=== PATIENT | male | born 1930 | race Caucasian/White ===

== ENCOUNTER 2017-09-13 09:17 | Inpatient (IN) | payer MEDICARE, OTHER ==
[~2017-09-13] VITALS: Ht 193 cm; Wt 93.4 kg
[~2017-09-13 09:17] MED LIST: ALEVE220 MG; FOLIC ACID 40400 MC1 PO; RIVASTIGMINE1.5 MG PO; ZOCOR20 MG
[2017-09-13 09:23] VITALS: BP 148/78
[2017-09-13] MEDS ORDERED: NAMENDA 10 MG T10 MG PO (09:26)
[2017-09-13 09:54] LABS: ABSOLUTE BASOPHILS 0.1 thou/uL (0.0-0.2); ABSOLUTE EOSINOPHILS 0.3 thou/uL (0.0-0.7); ABSOLUTE LYMPHOCYTES 2.3 thou/uL (0.8-5.3); ABSOLUTE MONOCYTES 0.4 thou/uL (0.0-1.2); ABSOLUTE NEUTROPHILS 5.7 thou/uL (1.6-8.1); BASOPHILS 0.9 %; EOSINOPHILS 3.2 %; HEMATOCRIT 49.9 % (42.0-52.0); HEMOGLOBIN 16.9 gm/dL (14.0-18.0); LYMPHOCYTES 26.1 %; MCH 32.2 pg (26.0-34.0); MCHC 33.9 g/dL (28.0-37.0); MCV 95.1 fL (80.0-100.0); MPV 8.5 fl. (7.2-11.1); NUCLEATED RBCS 0 /100WBC; PLATELET COUNT* 244 thou/uL (150-400); POLYS 64.8 %; RBC 5.24 mil/uL (4.50-6.00); RDW-CV 13.3 % (10.5-14.5); WBC 8.8 thou/uL (4.0-11.0)
[2017-09-13 10:05] LABS: CALCIUM 8.6 mg/dL (8.5-10.1); CREATININE 0.9 mg/dL (0.6-1.3); POTASSIUM 3.6 mmol/L (3.5-5.1)
[2017-09-13 10:10] LABS: ALBUMIN 3.4 g/dL (3.4-5.0); TOTAL BILIRUBIN 0.8 mg/dL (<0.1-1.0); TOTAL PROTEIN 6.2 g/dL (6.4-8.2)
[2017-09-13 11:20] VITALS: BP 133/62
--- NOTE | 2017-09-13 11:41 | NUR ---
TAKEN TO PACU AT THIS TIME.
--- NOTE | 2017-09-13 16:04 | EKG ---
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 Specialist: international travel consultant : 1930 Requested By: Bridget Esteban Order Number: [id number] MD: William Montana Measurements Intervals [place] Rate: 55 P: 67 NE: 184 QRS: -56 QRSD: 123 T: 63 QT: 428 QTc: 410 Interpretive Statements Sinus rhythm Left bundle branch block Compared to ECG 07/20/2007 09:12:11 Sinus bradycardia no longer present First degree AV block no longer present Electronically Signed On 09-13-2017 16:04:40 METAL FABRICATING INSPECTOR by William Montana [email or web address] <ELECTRONICALLY SIGNED> By: William Montana MD, FAC 09/13/17 1604 0947 0947 William Montana MD, [facility] /EPI
[2017-09-13] MEDS ORDERED: FOLIC ACID1 MG PO (17:40)
[2017-09-13] MEDS ORDERED: ALEVE220 MG PO (17:40)
[2017-09-13] MEDS ORDERED: ASPIR 8181 MG PO (17:40)
[2017-09-13 20:00] VITALS: BP 148/74
[2017-09-13 23:30] VITALS: BP 132/65
[2017-09-14 04:08] VITALS: BP 113/70
[2017-09-14 04:20] LABS: HEMATOCRIT 43.4 % (42.0-52.0); MCH 31.2 pg (26.0-34.0); MCHC 33.2 g/dL (28.0-37.0); MCV 94.1 fL (80.0-100.0); MPV 8.5 fl. (7.2-11.1); NUCLEATED RBCS 0 /100WBC; PLATELET COUNT* 286 thou/uL (150-400); RBC 4.61 mil/uL (4.50-6.00); WBC 16.9 thou/uL (4.0-11.0)
[2017-09-14 04:33] LABS: CALCIUM 8.3 mg/dL (8.5-10.1); CREATININE 1.1 mg/dL (0.6-1.3); POTASSIUM 4.5 mmol/L (3.5-5.1)
[2017-09-14 04:44] LABS: HEMOGLOBIN 14.4 gm/dL (14.0-18.0)
--- NOTE | 2017-09-14 06:26 | NUR ---
ASSUMED CARE OF PT AT 1900 PT ALERT AND CONFUSED AT BASELINE VS AND ASSESSMENT STABLE.L HIP DRSG CDI POSITIVE CMSCHECKS LLE PT UNABLE TO VOID BS 400 MLS OBTAINED ORDER FOR S/C UNABLE TO CATH WITH A 14FR REGULAR CATHETER ATEMPTED WITH A 14 F COUDE UNSUCESSFULLY TRIED AGAIN WITH 12FR AND WAS ABLE TO PASS THE CATHETER S/C FOR 350 TONJA URINEPT TOLERATED FAIR. PT PICKED AT O2 SAT MONITOR AND REMOVED SENSOR 3 TIMES. PT GOT OOB ON OWN BED ALARM WENT OFF PT HAD DICONECTED THE CAP OFF SL AND BLED ALL OVER HIS BED. CLEANED PT UP AND CHANGED SHEETS PT THEN SLEPT THROUGH THE REST OF THE NIGHT. WILL CONTINUE PLAN OF CARE.
[2017-09-14 06:53] LABS: ABSOLUTE LYMPHOCYTES 0.3 thou/uL (0.8-5.3); ABSOLUTE MONOCYTES 1.2 thou/uL (0.0-1.2); ABSOLUTE NEUTROPHILS 15.4 thou/uL (1.6-8.1)
[2017-09-14 06:56] LABS: PLATELET ESTIMATE ADEQUATE
[2017-09-14 08:03] VITALS: BP 143/74
--- NOTE | 2017-09-14 09:25 | NUR ---
PATIENT STRAIGHT CATHED AT 0030 LAST SHIFT. HAS BEEN UNABLE TO VOID SPONTANEOUSLY SINCE THEN. STOOD PATIENT AND ATTEMPTED TO VOID IN URINAL WITHOUT RESULTS. BLADDER SCANNED. 298 ML IN BLADDER. PHYSICIAN PAGED. NURSING WILL CONTINUE TO MONITOR.
--- NOTE | 2017-09-14 13:47 | NUR ---
PT.HAS DX OF DEMENTIA. DOES NOT FOLLOW DIRECTIONS. UNABLE TO ANSWER QUESTIOS APPROPRIATELY. CALL TO SON/DPOA GERMAINE [phone]. LEFT MESSAGE FOR HIM TO CALL CM BACK.
--- NOTE | 2017-09-14 15:00 | NUR ---
GERMAINE,PT.S SON CALLED CM BACK. GERMAINE SAID PT.LIVES WITH IN A HOUSE. HE DOES NOT USE ANY DME. GERMAINE SAID HIS MOM HAS MACULAR DEGENERATION AND A BAD BACK SHE IS ALERT AND ORIENTED BUT CAN'T LEAVE THE HOUSE MUCH. FATHER WAS OK PHYSICALLY PRIOR TO HIS FALL BUT HAS DEMENTIA. FAMILY IS SUPPORTIVE. DISCUSSED DISCHARGE PLANS. HE IS AWARE HE WILL NEED SNF. HE SAID HE COULD GO TO [facility] OR [facility]. ABSOLUTELY NO TO [facility]. CM WILL MAKE REFERRALS TO BOTH FACILITIES.
--- NOTE | 2017-09-14 15:14 | NUR ---
I have reviewed the documentation by MYCHAL ANDRE from 09/14/17 to 09/14/17 and I concur with it. JANIE BARNES
[2017-09-14 15:41] VITALS: BP 141/80
--- NOTE | 2017-09-14 15:58 | NUR ---
I have reviewed the documentation by MYCHAL ANDRE from 09/14/17 to 09/14/17 and I concur with it. JANIE BARNES
--- NOTE | 2017-09-14 17:06 | NUR ---
ASSUMED CARE OF PATIENT AFTER REPORT THIS MORNING. PATIENT AWAKE, ALERT, AND ORIENTED TO SELF AND PLACE. PHYSICAL ASSESSMENT COMPLETED AND CHARTED. COMPLAINED OF PAIN THIS SHIFT BUT HAS DECLINED PAIN MEDICATION. GIVEN SCHEDULED MEDICATIONS, SEE EMAR FOR DOCUMENTATION. VITAL SIGNS STABLE. OXYGEN SATURATION WITHIN NORMAL LIMITS ON ROOM AIR. PATIENT TRANSFERS AND AMBULATES WITH ASSISTANCE FROM STAFF. DOES NOT USE CALL LIGHT APPROPRIATELY, ACTS IMPULSIVELY. REQUIRES FREQUENT OBSERVATION. FAMILY HAS BEEN IN AND OUT OF ROOM TODAY. PATIENT PULLED OUT IV THIS AFTERNOON. CONFUSED. PAGED PHYSICIAN TO SEE IF WE COULD LEAVE IV OUT. WAITING TO HEAR FROM PHYSICIAN. PATIENT HAS WALKED TO THE BATHROOM SEVERAL TIMES TODAY WITH GAIT BELT AND WALKER. DENIES NEEDS AT THIS TIME. CALL LIGHT WITHIN REACH. NURSING WILL CONTINUE TO MONITOR.
[2017-09-14 20:00] VITALS: BP 128/78
[2017-09-15 00:02] VITALS: BP 143/68
[2017-09-15 04:00] VITALS: BP 124/73
[2017-09-15 05:03] LABS: ABSOLUTE LYMPHOCYTES 1.4 thou/uL (0.8-5.3); ABSOLUTE MONOCYTES 1.6 thou/uL (0.0-1.2); ABSOLUTE NEUTROPHILS 10.9 thou/uL (1.6-8.1); BASOPHILS 0.2 %; HEMATOCRIT 38.9 % (42.0-52.0); LYMPHOCYTES 10.1 %; MCH 31.4 pg (26.0-34.0); MCHC 33.5 g/dL (28.0-37.0); MCV 93.7 fL (80.0-100.0); MONOCYTES 11.4 %; MPV 8.9 fl. (7.2-11.1); NUCLEATED RBCS 0 /100WBC; PLATELET COUNT* 243 thou/uL (150-400); POLYS 78.3 %; RBC 4.15 mil/uL (4.50-6.00); RDW-CV 13.3 % (10.5-14.5); WBC 13.9 thou/uL (4.0-11.0)
[2017-09-15 05:13] LABS: ALBUMIN 2.8 g/dL (3.4-5.0); CALCIUM 8.4 mg/dL (8.5-10.1); CREATININE 1.1 mg/dL (0.6-1.3); TOTAL BILIRUBIN 0.7 mg/dL (<0.1-1.0); TOTAL PROTEIN 5.6 g/dL (6.4-8.2)
[2017-09-15 08:14] VITALS: BP 134/74
--- NOTE | 2017-09-15 09:34 | NUR ---
ASSUMED RESPONSIBILITY OF PT THIS AM PT IS ALERT AND ORIENTED X1 PT WAS STUTTERING THIS AM, HAVING TROUBLE FINDING WORDS, INVOLUNTARY JERKING, PAIN IF BARELY TOUCHED, COULD NOT LIFT EXT. OR KEEP THEM UP, DEVELOPMENT ASSOCIATE WEAK, WOULD NOT SMILE BECAUSE COULD NOT FOLLOW COMMANDS CT OF HEAD TO BE DONE AND IV FLUIDS TO BE STARTED NEED TO PUT NEW IV IN PT PULLS THEM OUT PT WOULD NOT GET UP WITH THERAPY PT DID NOT EAT THIS AM EITHER VERY DIFFICULT TO SWALLOW MEDS JUST HOLDING IT IN MOUTH NO COUGHING OR SIGNS OF ASPIRATION TYLENOL STARTED SCHEDULED
--- NOTE | 2017-09-15 11:31 | NUR ---
[facility]INO [facility] CALLED AND SAID THEY CAN ACCEPT PT.TOMORROW IF READY FOR DISCHARGE. WILL INFORM FAMILY.
--- NOTE | 2017-09-15 13:19 | S ---
[address] [address] SURGICAL PATH RPT PROCEDURE Name: EDISON MELO V Room: [address] IN M.R.#: [id number] Admission: 09/13/17 Date of : 34 Discharge: Report #: [id number] Path Case #: [id number] PATHOLOGY REPORT COLLECTION DATE: 09/13/2017 RECEIVED DATE: 09/13/2017 SUBMITTING PHYS: Edison Lorenzo D.O. OTHER PHYS: Dr. Angel Grossman DO SPECIMEN(S) RECEIVED: A.R hip bone and tissue * * * * * * * * * * * * FINAL DIAGNOSIS: Right hip bone and tissue: - Benign dense fibrous connective tissue and benign femoral head with osteoporosis and evidence of fracture including fresh stromal hemorrhage. (ALESSANDRA:[facility]; 09/15/2017) PATHOLOGIST: Xavier Borden M.D. REPORT ELECTRONICALLY SIGNED BY: Xavier Borden M.D. DATE/TIME: 09/15/2017 13:18 * * * * * * * * * * * * GROSS PATHOLOGY: Received in formalin labeled "Edison Melo, right hip bone and tissue," is a femoral head measuring 5.1 x 5.1 x 4.8 cm in greatest dimensions, admixed with soft tissue. The articular surface is smooth to granular and pale moffett to dark brown in appearance, with no gross evidence of eburnation. Sectioning reveals a pale pink-yellow to hemorrhagic marrow space, with the distal most aspect hemorrhagic in appearance, consistent with a fracture site. Machine Compositor tissue from the fracture site is submitted in cassettes A1 and A2, following decalcification. (DAC; 09/14/2017) CLINICAL HISTORY: Right hip fracture INITIAL CPT CODE(S): A; 98343, 58473 Professional services performed by [facility] at [facility], [address] [place] [address]., [place] [address]. [facility] by [facility] at [address] [place] [address], [address], [place] [address] SURGICAL PATH RPT PROCEDURE Name: EDISON MELO V Room: [address] IN M.R.#: [id number] Admission: 09/13/17 Date of : 34 Discharge: Report #: [id number] Path Case #: [id number] [place] [address]. [facility] [address] [place] [address] PHONE: [phone] DIRECTOR: Warren Peres M.D. * * * END OF REPORT * * *
[2017-09-15 16:17] VITALS: BP 110/61
[2017-09-15 20:00] VITALS: BP 115/58
[2017-09-16] VITALS (8 sets, daily range): BP systolic 105–127; BP diastolic 55–67
[2017-09-16 01:30] LABS: URINE BILIRUBIN NEGATIVE (Negative); URINE BLOOD 3+ (Negative); URINE CLARITY CLEAR; URINE COLOR DARK YELLOW; URINE GLUCOSE-RANDOM NEGATIVE (Negative); URINE KETONES TRACE (Negative); URINE LEUKOCYTES-REFLEX TRACE (Negative); URINE NITRITE-REFLEX NEGATIVE (Negative); URINE PROTEIN 1+ (Negative); URINE SPECIFIC GRAVITY 1.025 (1.005-1.030); URINE UROBILINOGEN 0.2 E.U./dl (0.2-1.0)
[2017-09-16 01:36] LABS: SQUAMOUS 0-3 Few /LPF (0-3); URINE RBC >20 Many /HPF (0-2); URINE WBC-REFLEX 6-15 Few /HPF (0-5)
[2017-09-16 01:37] LABS: CASTS None Seen /LPF (None Seen); CRYSTALS None Seen /LPF (None Seen); MUCUS 0-3 Light strn/LPF (None Seen)
[2017-09-16 04:46] LABS: ABSOLUTE LYMPHOCYTES 1.5 thou/uL (0.8-5.3); ABSOLUTE MONOCYTES 0.8 thou/uL (0.0-1.2); ABSOLUTE NEUTROPHILS 7.7 thou/uL (1.6-8.1); BASOPHILS 0.5 %; EOSINOPHILS 0.5 %; HEMATOCRIT 36.8 % (42.0-52.0); HEMOGLOBIN 12.2 gm/dL (14.0-18.0); MCH 31.5 pg (26.0-34.0); MCHC 33.2 g/dL (28.0-37.0); MONOCYTES 8.3 %; MPV 8.5 fl. (7.2-11.1); NUCLEATED RBCS 0 /100WBC; PLATELET COUNT* 226 thou/uL (150-400); POLYS 75.7 %; RBC 3.88 mil/uL (4.50-6.00); RDW-CV 13.4 % (10.5-14.5); WBC 10.1 thou/uL (4.0-11.0)
[2017-09-16 05:54] LABS: PREALBUMIN 12.7 mg/dL (18.0-35.7)
[2017-09-16 06:37] LABS: ALBUMIN 2.5 g/dL (3.4-5.0); CALCIUM 8.1 mg/dL (8.5-10.1); POTASSIUM 3.6 mmol/L (3.5-5.1); TOTAL BILIRUBIN 0.9 mg/dL (<0.1-1.0); TOTAL PROTEIN 5.5 g/dL (6.4-8.2)
--- NOTE | 2017-09-16 06:57 | NUR ---
Oriented x 1-2 but forgetful. At start of shift seemed more alert and oriented now he's very impulsive. Rt anterior hip mepilex dressing is dry and intact. He trys to get out of bed without assistance. He seemed to be controlled with extra strength tylenol for pain. He has been awake all of this shift. He was repositiones every 2 hours.
--- NOTE | 2017-09-16 13:53 | NUR ---
HERE AND WILL DISCHARGE PT.TO SNF. NOTIFIED ERIK/SEFERINO OF [facility]. SHE WILL SET UP WC [facility] TRANSPORTATION FOR 4PM .FAXED DISCHARGE ORDERS TO HER AT [phone]. NOTIFIED PT.AND SON OF DISCHARGE TIME. CHART COPIED TO GO WITH PT. NURSING TO CALL REPORT.
[2017-09-16] MEDS ORDERED: COLACE100 MG PO (15:45)
[2017-09-16] MEDS ORDERED: ELIQUIS2.5 MG PO (15:46)
[2017-09-16] MEDS ORDERED: METAMUCIL1 EAC1 PO (15:49)
[2017-09-16] MEDS ORDERED: HYDROCODONE-AP1 EAC6 PO (15:49)
[2017-09-16] MEDS ORDERED: PROTONIX40 M1 PO (15:50)
[2017-09-16] MEDS ORDERED: TYLENOL PM EX-1 EACH PO (15:51)
--- NOTE | 2017-09-16 18:09 | NUR ---
ALERT AND ORIENTED X1-2. UP WITH ASSIST X1 WITH WALKER AND GAIT BELT. IV DC'D. PAIN BEING MANAGED WITH SCHEDULED PO PAIN MEDICAION. DENIES NAUSEA. ATTENDED THERAPY THIS AM. ALL PERSONAL ITEMS LEFT WITH PATIENT. DISCHARGE INSTRUCTIONS, PRESCRIPTIONS, AND NEW MEDICATION INFORMATION SENT WITH PATIENT TO FACILITY. VSS ON ROOM AIR. HOURLY ROUNDS HAVE BEEN MAINTAINED THROUGHOUT SHIFT. LEFT WITH TRANSPORTER VIA WHEELCHAIR VAN. REPORT GIVEN TO NURSE AT [facility].
--- NOTE | 2017-12-11 09:58 | OP ---
[address] [address] OPERATIVE REPORT Name: EDISON RENEE V Room: [address] IN M.R.#: [id number] Admission: 09/13/17 Attend Phys: Angel Rausch MD Discharge: 09/16/17 Date of : 32 Report #: [id number] THIS REPORT FOR: //name// CC: Angel Grossman PREOPERATIVE DIAGNOSIS: Right femoral neck fracture, closed, displaced, traumatic. POSTOPERATIVE DIAGNOSIS: Right femoral neck fracture, closed, displaced, traumatic. PROCEDURE: Right blanco hip arthroplasty through anterior approach. SURGEON: Edison Lorenzo DO WELLNESS EDUCATOR: Jun El DO ANESTHESIA: General. ANTIBIOTICS: Weight appropriate dosing Ancef IV preoperatively. BLOOD LOSS: 150 mL. COMPLICATIONS: None. SPECIMENS: Femoral head. DRAINS: None. CONDITION: The patient is stable to PACU. IMPLANTS: Biomet Taperloc size 16 standard offset stem bipolar size 52 with standard neck adaptor. INDICATIONS FOR PROCEDURE: The patient admitted to [facility] and sustained a femoral neck fracture that was displaced. I talked with him and family members who act his power of managing attorney what the recommendations would be. We discussed blanco hip arthroplasty and the risks and complications associated with that. Please see consult note for full list of what was discussed. We obtained verbal and written consent from power of managing attorney. DESCRIPTION OF PROCEDURE: I confirmed the right extremity was correct and marked the extremity in the presence of the operative team, all members agreed. He was taken to the operative suite where a briefing was performed indicating correct patient, procedure, site, antibiotics and that all implants needed were present and sterile. All team members agreed. [place] [address] OPERATIVE REPORT Name: EDISON RENEE V Room: [address] IN ..#: [id number] Admission: 09/13/17 Attend Phys: Angel Rausch MD Discharge: 09/16/17 Date of : 32 Report #: [id number] He was transferred over to the [place] fracture table in a supine position, well padded and well secured. We sterilely prepped and draped the right lower extremity in standard fashion. An official timeout performed indicating correct patient, procedure, site, antibiotics and that all implants needed were present and sterile. All team members agreed. Incision made with 10 blade scalpel. Soft tissue dissection maintaining hemostasis down to fascial layer. A second scalpel used to incise through fascia and then we bluntly dissected between the interval of the tensor fascia radha and sartorius. We visualized our lateral femoral circumflex vessels, cauterized these with the Aquamantys and electrocautery. At that point in time, we continued dissection down and got retractors over the superior and inferior aspects of the femoral neck. Blunt dissection releasing the indirect head off capsule and then a retractor placed over the anterior brim of the acetabulum. The anterior capsule was cauterized with Aquamantys and electrocautery used to perform anterior capsulectomy. Retractors were placed back inside the capsule. We cleaned up our neck cut 1 fingerbreadth above the lesser trochanter, removed the fractured femoral neck and head. This was sent for specimen and specimen time out was performed and confirmed. We repositioned retractors. We incised the head on the back table to be 52. We placed the 52 trial bipolar shell. This had good suction and good fit within the acetabulum. This will be used for later trialing. We then used a [place] fracture table to position the extremity and only performed what releases were necessary to gain access to the femur and began broaching with a size [address] up to a size 16, size 16 had good fit, fill and good rotation for version based on the back wall in the calcar. For judgment, we took an x-ray of the stem which showed good fit and fill. Therefore, the final size 16 was thrown after confirming this to be appropriate based on implant timeout, so the final size 15 Taperloc standard offset was implanted into the femur after thoroughly irrigating with normal saline and removing the trial component. The final implant sat down the exact same location of the final. We trialed a standard neck adaptor with the 52 head, reduced the hip, brought in, x-ray. We had great confirmation of our leg lengths by looking at the lesser trochanter was on a true AP pelvis. Good fit of the 52 cup within the acetabulum. External rotation to 110 degrees did not show any instability. We took the boot out of the [place] table, took throughout range of motion. It was stable throughout all arcs with no dislocation. At any point, we reengaged the boot to the table, changed gloves, irrigated within the surgical site, dislocated the hip, repositioned the femur for access, removed trial components, final size 52 with a 28 inside diameter head was thrown on to back table after confirming this on implants time outs with a standard length neck adapter. This was all assembled on the backtable and gated on to the final stem and the Rasheed taper engaged, confirmed by not being able to remove from the head once we malleted in position. We then reduced the hip, obtained final C-arm images, excellent position of all implants. No fracture, no instability. Took the hip again through range of motion out of the table. It was stable throughout all arcs including over 110 degrees of external rotation. Changed gloves, thoroughly irrigated with 1000 mL of normal saline. Closure was with [address] [address] OPERATIVE REPORT Name: EDISON RENEE V Room: [address] IN ..#: [id number] Admission: 09/13/17 Attend Phys: Angel Rausch MD Discharge: 09/16/17 Date of : 34 Report #: [id number] and Stratafix with the fascial layer with complete closure proximally and distally. Subcutaneous layer was irrigated with 500 mL normal saline and closed with 2-0 Monocryl buried deep in a running subcuticular stitch with V-Loc and Dermabond glue over the skin. We performed debriefing where we confirmed the procedure, blood loss and that all counts were correct and final. Sterile dressing applied. The patient was actually extubated and transferred off the operating table and taken to PACU Stable. POSTOPERATIVE COURSE AND EVALUATION: I spoke with his children. They included the power of managing attorney, informed them surgery went well and addressed any questions or concerns they had. They thanked me for our time and efforts. The patient was resting in the PACU. His neurovascular exam was intact and unchanged compared to preoperative exams. Pain controlled in stable condition. PACU films showed excellent position of components, no dislocation, no fracture seen. <ELECTRONICALLY SIGNED> By: Edison Lorenzo DO 12/11/17 0958 1135 1322Jamarilyn Lorenzo DO /nt
== END 2017-09-16 16:00 | DRG 469 ==
LOC: M.ERS 09:17 → M.ORTHSURG 10:47 → M.TBA-ER 10:47 → M.ORTHSURG 17:24
PROVIDERS: Orthopaedic Surgery; Personal Emergency Response Attendant; ADMIT Internal Medicine
PROC: 0SRR0JZ Replacement of Right Hip Joint, Femoral Surface with Synthetic Substitute, Open Approach (ICD-10-PCS; principal; 2017-09-13)
DX: S72.001A Fracture of unspecified part of neck of right femur, initial encounter for closed fracture (principal); G93.40 Encephalopathy, unspecified; I25.10 Atherosclerotic heart disease of native coronary artery without angina pectoris; S91.011A Laceration without foreign body, right ankle, initial encounter; W00.0XXA Fall on same level due to ice and snow, initial encounter; Y93.89 Activity, other specified; Y92.89 Other specified places as the place of occurrence of the external cause; Y99.8 Other external cause status; Z79.899 Other long term (current) drug therapy; Z87.891 Personal history of nicotine dependence; Z95.1 Presence of aortocoronary bypass graft

== ENCOUNTER → 2017-11-08 | Outpatient (CLI) | payer MEDICARE, OTHER ==
[~2017-11-08] MED LIST changes: +ALEVE220 MG PO; +ASPIR 8181 MG PO; +COLACE100 MG PO; +ELIQUIS2.5 MG PO; +FOLIC ACID1 MG PO; +HYDROCODONE-AP1 EAC6 PO; +METAMUCIL1 EAC1 PO; +NAMENDA 10 MG T10 MG PO; +PROTONIX40 M1 PO; +TYLENOL PM EX-1 EACH PO
== END ==
LOC: M.RAD 15:29
DX: Z13.820 Encounter for screening for osteoporosis (principal); M85.89 Other specified disorders of bone density and structure, multiple sites

== ENCOUNTER 2018-09-04 12:25 | Inpatient (IN) | payer MEDICARE, OTHER ==
[~2018-09-04] VITALS: Ht 193 cm; Wt 106.6 kg
[~2018-09-04 12:25] MED LIST changes: -ZOCOR20 MG; +ZOCOR20 MG PO
[2018-09-04 12:26] VITALS: BP 144/70
[2018-09-04] MEDS ORDERED: VITAMIN D2000 UNIT PO (12:40)
[2018-09-04] MEDS ORDERED: TYLENOL EXTRA500 MG PO (12:40)
[2018-09-04] MEDS ORDERED: CALCIUM500 MG PO (12:41)
--- NOTE | 2018-09-04 12:43 | NUR ---
STOPPED TAKING ELIQUIS AND SWITCHED TO XERALTO, BUT IT HAS BEEN HELD FOR 7 DAYS FOR A PROCEDURE TO LOOK FOR BLOOD. PATIENT HAD RIGHT HIP SURGERY LAST YEAR.
[2018-09-04 14:43] LABS: URINE BILIRUBIN NEGATIVE (Negative); URINE BLOOD 1+ (Negative); URINE CLARITY CLEAR; URINE COLOR YELLOW; URINE GLUCOSE-RANDOM NEGATIVE (Negative); URINE KETONES TRACE (Negative); URINE LEUKOCYTES-REFLEX TRACE (Negative); URINE NITRITE-REFLEX NEGATIVE (Negative); URINE PROTEIN TRACE (Negative); URINE SPECIFIC GRAVITY 1.025 (1.005-1.030); URINE UROBILINOGEN 0.2 E.U./dl (0.2-1.0)
[2018-09-04 14:50] LABS: BACTERIA-REFLEX 1-9 Few /HPF (None Seen); MUCUS 0-3 Light strn/LPF (None Seen); SQUAMOUS 0-3 Few /LPF (0-3); URINE RBC 0-2 Rare /HPF (0-2); URINE WBC-REFLEX 6-15 Few /HPF (0-5)
[2018-09-04 14:51] LABS: COARSE GRANULAR CASTS 0-3 Few /LPF (None Seen); CRYSTALS None Seen /LPF (None Seen)
[2018-09-04 16:42] VITALS: BP 133/68
[2018-09-04] MEDS ORDERED: XARELTO10 MG PO (16:44)
[2018-09-04 16:51] LABS: ABSOLUTE EOSINOPHILS 0.1 thou/uL (0.0-0.7); ABSOLUTE LYMPHOCYTES 1.7 thou/uL (0.8-5.3); ABSOLUTE MONOCYTES 0.9 thou/uL (0.0-1.2); ABSOLUTE NEUTROPHILS 6.3 thou/uL (1.6-8.1); BASOPHILS 0.5 %; EOSINOPHILS 0.8 %; HEMOGLOBIN 15.2 gm/dL (14.0-18.0); LYMPHOCYTES 18.5 %; MCH 32.4 pg (26.0-34.0); MCHC 33.9 g/dL (28.0-37.0); MCV 95.8 fL (80.0-100.0); MONOCYTES 10.1 %; MPV 8.3 fl. (7.2-11.1); NUCLEATED RBCS 0 /100WBC; PLATELET COUNT* 240 thou/uL (150-400); POLYS 70.1 %; RDW-CV 13.1 % (10.5-14.5)
[2018-09-04 16:55] LABS: POTASSIUM 3.8 mmol/L (3.5-5.1)
[2018-09-04 17:23] VITALS: BP 123/103
--- NOTE | 2018-09-04 17:45 | NUR ---
RECIEVIED REPORT FROM CURRY RN IN ER OF EXPECTED ADMISSION AT 1620- DX: FALL WITH CONTUSION TO RIGHT KNEE- PT ARRIVED TO ROOM 220 VIA CART AT 1700, ASSIST X3 TO BED VIA SLIDE- PT A&O 1-2 WITH NOTED CONFUSION R/T DEMENTIA- CONTINENT VS INCONTINENT OF BOWEL AND BLADDER- BED REST IN PLACE WITH Q 2 HOUR TURNS- VS 97.2 20 123/103 83 97% ON RA- ABD SOFT/ROUND/NON-TENDER, BSN X4 QUADS- UNKNOWN LAST BM- NO IV NOTED AT TIME OF ADMISSION- REGULAR DIET IN PLACE WITH GOOD PO INTAKE NOTED WITH DINNER- SKIN C/D/I, FEW SCANT SCRATCH TATUM NOTED TO BUTTOCKS-DRY SCALEY SKIN NOTED TO AYALA FEET- PT DENIES ANY C/O PAIN/DISCOMFORT AT THIS TIME- CALL LIGHT AND PERSONAL BELONGINGS WITH IN REACH- BED ALARM IN PLACE AND WORKING FOR PT SAFETY- FREQUENT CHECKS IN PLACE R/T SAFETY/NEEDS- ALL NEEDS MET AT THIS TIME-WCTM
[2018-09-04 19:05] VITALS: BP 136/67
[2018-09-05] VITALS: BP 150/65
--- NOTE | 2018-09-05 01:32 | NUR ---
PT IS ALERT & ORIENTED X SELF AND IS VERY IMPULSINE. REFER TO COMPUTER CHARTING FOR DETAIL. VSS. TRACING SR ON MONITOR. UP TO BSC TO WITH 2 ASSIST AND GB. HOURLY ROUNDING AND FALL PRECAUTIONS IN [place] FOR SAFETY. CLWR.
[2018-09-05 04:00] VITALS: BP 128/57
--- NOTE | 2018-09-05 06:02 | NUR ---
PT CONTINUES SR ON MONITOR. PT IS IMPULSIVE AND NON COMPLIANT WITH CALL LIGHT. ALERT & ORIENTED TO SELF ONLY. VSS. PT IS HAVING AN INCREASINGLY DIFFICULT TIME GETTING UP WITH 2 ASSIST AND GB TO BSC. HOURLY ROUNDING FOR SAFETY. FALL PRECAUTIONS IN PLACE. CLWR.
[2018-09-05 07:53] VITALS: BP 126/64
--- NOTE | 2018-09-05 08:35 | NUR ---
ASSUMED CARE OF PT THIS AM AROUND 07- SENIOR BIOSTATISTICIAN/GROUP LEADER IN PLACE ORDERED, TRACING SR WITH BBB- UPON ASSESSMENT PT NOTED TO BE RESTING IN BED- PT A&O X1 WITH NOTED CONFUSSION R/T DEMENTIA- CONTINENT OF BOWEL AND BLADDER- ASSIST X1 WITH TRANSFERS- LCTA, RESP EVEN AND UN-LABORED- VSS, O2 SAT 96% ON RA-ABD SOFT/FLAT/NON-TENDER, BS X 4 QUADS- IV NOTED TO LEFT FA INTACT AND SL- SET UP ASSIST WITH MEALS, GOOD PO INTAKE NOTED THIS AM WITH BREAKFAST-ORTHO RESIDENT HERE TO ASSESS THIS AM WITH ORDERS NOTED FOR LUMBAR X-RAY ANF RIGHT KNEE WRAPPED PER RESIDENT WITH VU WRAP- PT STATES PAIN TO RIGHT KNEE, UNABLE TO RATE, BUT STATES NOT TO BE TO BAD- SCHEDULED TYLENOL GIVEN THIS AM- CALL LIGHT AND PERSONAL BELONGINGS WITH IN REACH- HOURLY ROUNDS IN PLACE R/T SAFETY/NEEDS- ALL NEEDS MET AT THIS TIME-WCTM
[2018-09-05 12:29] VITALS: BP 121/54
--- NOTE | 2018-09-05 13:16 | NUR ---
assessment: CM spoke w/pt's daughter in law, Cielo and son/DPOA, Michael to discuss d/c planning, home situation and educate on role of CM. Pt A&Ox1, present w/confusion r/t dementia dx. pt lives at home w/spouse. pt has private duty caregiver in the home part-time. prior to current hospitalization pt was able to ambulate w/walker and use restroom w/o assist. family expressed they would like for pt to go to SNF if he unable to ambulate on his own. Family's goal is for pt return to baseline & back home. [facility] is Michael's first choice for SNF. pt has hx w/ [facility] & it's okay for pt to return their need be. Michael is adamant that he doesnt want [facility] for SNF. Shelby JUAN reached out to Doctor to have PT/OT ordered. This CM faxed referral to [facility] @ [phone].
--- NOTE | 2018-09-05 16:28 | EKG ---
[place] [address] ELECTROCARDIOGRAM REPORT Name: EDISON RENEE V Room: [address] ADM IN M.R.#: [id number] Admission: 09/04/18 Attend Phys: Murphy Beatty Discharge: Date of : 34 Report #: [id number] THIS REPORT FOR: //name// [facility] ED Test Date: 2018-09-04 Test Time: 15:33:43 Pat Name: EDISON RENEE Department: Room: [facility] Gender: M Tailor'S Aide: MÓNICA : 1930 Requested By: Edwar Olmos Order Number: [id number] MD: William Montana Measurements Intervals [place] Rate: 77 P: 79 RI: 187 QRS: -61 QRSD: 124 T: 61 QT: 383 QTc: 434 Interpretive Statements Sinus rhythm Atrial premature complex Left bundle branch block Baseline wander in lead(s) V4 Compared to ECG 09/13/2017 09:47:56 Atrial premature complex(es) now present Electronically Signed On 09-05-2018 16:27:58 DRAWER UPFITTER by William Montana [email or web address] <ELECTRONICALLY SIGNED> By: William Montana MD, FACC 09/05/18 1627 1533 1533 William Montana MD, [facility] /EPI
--- NOTE | 2018-09-05 17:13 | NUR ---
PT CURRENLTY RESTING IN BED- TOBACCO SORTER IN PLACE ORDERED, TRACING SR WITH BBB- IV TO LEFT FA INTACT AND SL- IV ROCEPHIN R/T UTI STARTED THIS SHIFT AND GIVEN PRESCRIBED- OT/PT EVAL INITIATED-LUMBAR X-RAY COMPLETED THIS SHIFT ORDERED, WITH NO ACUTE FINDINGS NOTED- VU WRAP CONTINUED TO RIGHT KNEE INDICATED- FAMILY CONCERNED ABOUT LEFT SHOULDER PAIN AND LEFT KNEE C/O PAIN THIS SHIFT- PT ABLE TO MOVE LEFT SHOULDER WITH NO NOTED PAIN AND REPORTED TO THIS NURSE AND PHYSICIAN REPORTS OF TIGHTNESS TO LEFT KNEE- ORTHO PHYSICIAN HERE TO ASSESS THIS EVENING AND UPDATED ON FAMILY CONCERNS- SET UP ASSIST WITH MEALS REQUIRED, GOOD PO INTAKE NOTED-BED ALARM IN PLACE AND WORKING FOR PT SAFETY/NEEDS- ALL NEEDS MET AT THIS TIME- FREQUENT CHECKS IN PLACE-WC
[2018-09-05 17:24] VITALS: BP 118/57
[2018-09-05 20:00] VITALS: BP 143/63
[2018-09-06] VITALS: BP 142/69
[2018-09-06 04:00] VITALS: BP 145/64
--- NOTE | 2018-09-06 04:25 | NUR ---
ASSUMED PT CARE @ 1930. PT ORIENTED TO SELF ONLY. PT WAS IRRITABLE AND RESTLESS. ASSITED TO BATHROOM. RE-ORIENTED TO ROOM, STAFF, SITUTATION, ETC. PT WAS CALM AND ABLE TO SETTLE DOWN. NOTIFIED PT ANXIOUS AND RESTLESS. NOTIFIED. PRN MELATONIN ORDERED BUT PT FELL BACK ASLEEP. PT WOKE UP AROUND 0400 CONFUSED AND RESTLESS AGAIN. PT TRYING TO CLIMB OUT OF BED. ASSISTED TO COMMODE AND RE-ORIENTATION AND ASSISTANCE GIVEN. PT WAS ABLE TO CALM DOWN AND ASLEEP AT THIS TIME. BED ALARM ( WELL CHAIR ALARM) PUT ON THE BED FOR SAFETY. PT IS CURRENTLY RESTING WITH EYES SHUT. CALL LIGHT IN REACH, HOURLY ROUNDING FOR SAFETY.
[2018-09-06 08:34] VITALS: BP 133/65
--- NOTE | 2018-09-06 10:00 | NUR ---
VSS, ASSUMED CARE IN THE AM, ASSESSMENT PERFORMED AND CHARTED, FALL PRECAUTIONS IN PLACE AND CALL LIGHT IN REACH, PT IS A&O4 AND ON RA TRACING SR ON THE MONITOR, IS UP AD ARNOLDO AND HAS SOME PAIN HIS BACK, PT GOAL IS TO COMPLETE STRSS TEST AND SAFETY, WILL FOLLOW WITH PLAN OF CARE.
--- NOTE | 2018-09-06 11:39 | NUR ---
CONTINUE TO FOLLOW, MET WITH PT AND SON/JOSSELIN. SON STATED THAT PT IS TO GET 'NO' NARCOTICS. MADE GIDEON RICARDO AWARE AND ENCOURAGED SON TO DISCUSS WITH ALSO. DISCUSSED SNF, THEY STILL WOULD LIKE [facility]. DAWSON/CINTHYA TO BE OVER TO EVAL PT THIS AFTERNOON
[2018-09-06 12:00] VITALS: BP 131/57
[2018-09-06 16:00] VITALS: BP 134/58
[2018-09-06 20:00] VITALS: BP 140/60
[2018-09-07] VITALS: BP 118/64
--- NOTE | 2018-09-07 05:32 | NUR ---
ASSUMED PT CARE AT 1930. ASSESSMENT COMPLETED CHARTED. PT IS CONFUSED AND IMPULSIVE AT TIMES. RIGHT KNEE IS WRAPPED IN AN VU BANDAGE, PT C/O PAIN WHILE MOVING KNEE. NO C/O PAIN OR DISCOMFORT AT REST. PT RESTING IN BED AT THIS TIME. INSTRUCTED TO USE URINAL DUE TO NEW WEIGHT BEARING STATUS. VSS. WILL CONTINUE TO MONITOR.
[2018-09-07 07:50] VITALS: BP 142/54
--- NOTE | 2018-09-07 09:11 | NUR ---
ASSUMED CARE OF PT AROUND 0730 THIS AM. REFER TO ASSESSMENT. PT HAS NO COMPLAINTS OF PAIN. ORDERED KNEE BRACE TO PLACE TO RT KNEE PER ORTHO. PT NONCOMPLIANT WITH NWB STATUS. ENCOURAGE COMPLIANCE AND FREQUENT REMINDERS GIVEN. NO OTHER CONCERNS AT THIS TIME. GOALS DC PLANNING, PAIN MANAGEMENT. CLWR. WCTM.
[2018-09-07 09:12] LABS: URINE BILIRUBIN NEGATIVE (Negative); URINE BLOOD TRACE (Negative); URINE CLARITY CLEAR; URINE COLOR YELLOW; URINE GLUCOSE-RANDOM NEGATIVE (Negative); URINE KETONES TRACE (Negative); URINE LEUKOCYTES-REFLEX NEGATIVE (Negative); URINE NITRITE-REFLEX NEGATIVE (Negative); URINE PROTEIN NEGATIVE (Negative); URINE SPECIFIC GRAVITY 1.025 (1.005-1.030); URINE UROBILINOGEN 0.2 E.U./dl (0.2-1.0)
--- NOTE | 2018-09-07 16:41 | NUR ---
PT SOMEWHAT PROGRESSING TOWARDS GOALS THIS SHIFT. BRACE TO RLE KNEE. PT TOLERATING WELL. PT/OT EVAL AND TREAT. ANTICIPATE DC TO [facility] TOMORROW. NO OTHER CONCERNS AT THIS TIME. CLWR. WCTM.
[2018-09-07 17:30] VITALS: BP 128/60
[2018-09-07 20:00] VITALS: BP 149/94
[2018-09-08] VITALS: BP 147/69
--- NOTE | 2018-09-08 05:50 | NUR ---
ASSUMED CARE OF PT AFTER REPORT AT 1930. PT A&0X1. ONLY ORIENTED TO SELF. FORGETFUL. VSS. PHYSICAL ASSESSMENT COMPLETED AND CHARTED. PT ON RA WITH 98% O2% SAT. PT ON MEDSURG STATUS. PT C/O OF RIGHT KNEE PAIN-PAIN MEDS GIVEN PER SEP. PT RESTED WELL ON BED. CALL LIGHT WITHIN REACH. BE DIN LOW POSITION. BED ALARM ON.
[2018-09-08 08:00] VITALS: BP 146/66
--- NOTE | 2018-09-08 12:08 | NUR ---
VSS, ASSUMED CARE IN THE AM, ASSESSMENT PERFORMED AND CHARTED, FALL PRECAUTIONS IN PLACE AND CALL LIGHT IN REACH, PT IS CONFUSED AND IS UNABLE TO REAT PAIN, HE HAS RIGHT KNEE BRUSING AND SWEELING, AND IS TO BE ONLY 50% WIEHT BEARING, PT GOAL IS SAFETY AND D/C TO [facility], PT IS MED SURG STATUS, ON RA, ANS UP WITH ONE AND WALKER, WILL FOLLOW WITH PLAN OF CARE AND HOURLY ROUNDS.
--- NOTE | 2018-09-08 14:34 | NUR ---
CLARIFICATION OF WB ORDER REQUESTED. PATIENT HAS 50% PARTIAL WB STATUS ORDERS FOR RIGHT LE AND NON-WEIGHT BEARING ORDERS FOR THE LEFT. RN, HALEIGH, CONTACTED ORTHO TO OBTAIN CLARIFICATION. ELIZABETH BARNES, MPT
[2018-09-08 14:50] VITALS: BP 146/66
--- NOTE | 2018-09-08 15:45 | NUR ---
VSS, AT THIS TIME PT HAS BEEN GIVEN D/C ORDERS, PT HAS BEEN PLACED AT [facility] FOR REHAB, CALLED REPORT TO NURSE YIN, PROVITED REPORT AND D/C INSTRUCTIONS GIVEN CALL BACK NUMBER GIVEN, NURSE DENIES ANY QUESTIONS AFTER REPORT PT DENIES ANY QUESTIONS AT TIME OF D/C, IV AND TELE MONITOR TAKEN OFF, PT WAS DRESSED AND FAMILY AT BEDSIDE, PT FAMILY HAS D/C PAPERS AND PT IS TO BE TAKEN OUT VIA WHEEL CHAIR VAN HOURLY ROUNDS COMPLETED AND CHART CHECKED.
--- NOTE | 2018-09-10 07:58 | D ---
[address] [address] DISCHARGE SUMMARY Name: EDISON RENEE V Room: [address] M.R.#: [id number] Admission: 09/04/18 Attend Phys: Murphy Beatty Discharge: 09/08/18 Date of : 34 Report #: [id number] THIS REPORT FOR: //name// CC: Edison Lacy DATE OF SERVICE: 09/08/2018 DISCHARGE DIAGNOSES: 1. Right knee medial plateau fracture, nondisplaced, closed, status hinged knee brace placement per Ortho. 2. Dementia. 3. Urinary tract infection. 4. Hyperlipidemia. HOSPITAL COURSE: The patient is an 87-year-old gentleman who has history of right hip replacement, AFib, RVR, hypertension and CAD, who presented to the Emergency Department after a mechanical fall. The fall was witnessed by the neighbors who helped him inside. The patient denies any loss of consciousness. He does have history of dementia. He was then admitted. He had hip x-ray done, which showed right hip joint replacement with lumbar spine degenerative change. The patient had a knee x-ray done, which showed degenerative changes with apparent loose bodies or synovial cysts with multiple callous posteriorly. The patient continued to have trouble and Orthopedic was consulted and they planned to do a surgical intervention. The patient ended up having a lower extremity MRI, which showed a nondisplaced and impacted low oblique fracture of the fibular head with nondisplaced and impacted transverse fracture of the posterior aspect of the medial tibial plateau. Orthopedic recommended to do a hinged knee brace to right lower extremity and 50% weightbearing to right lower extremity. The patient denies any pain when I saw him. He denies any chest pain, shortness of breath. He cannot remember why he is here. He did have urine I thought initially to be positive, but he only had trace leukocyte and the repeat one was negative. He has received antibiotics. He is doing well. He will then be discharged to rehab for continued management. DISCHARGE PHYSICAL EXAMINATION: VITAL SIGNS: Temperature is 36.4, heart rate 68, respiratory rate of 16, blood pressure 146/66. GENERAL: The patient is alert. He is oriented to name and place, but forgetful, not in acute respiratory distress, sitting up in a chair, eating. HEENT: Normocephalic, atraumatic. Nares patent. Clear oropharynx. NECK: Supple. No lymphadenopathy. CARDIOVASCULAR: Normal rate, regular rhythm. No murmurs noted. RESPIRATORY: Clear to auscultation bilaterally. No wheeze, no crackle. GASTROINTESTINAL: Abdomen is soft, nontender, good bowel sounds. No organomegaly. GENITOURINARY: Deferred. MUSCULOSKELETAL: Fair strength. NEUROLOGIC: Alert and oriented, otherwise forgetful. DISCHARGE INSTRUCTIONS: The patient will be discharged again to rehab for continued PT and OT. ACTIVITY: Hinged knee brace to right lower extremity, 50% [place] [id number] DISCHARGE SUMMARY Name: EDISON RENEE V Room: [address] IN [facility].#: [id number] Admission: 09/04/18 Attend Phys: Murphy Beatty Discharge: 09/08/18 Date of : 34 Report #: [id number] right extremity with PT and OT per Ortho. DISCHARGE DIET: General diet. FOLLOWUP APPOINTMENT: With PCP in 3-5 days. Ortho per them. DISCHARGE MEDICATIONS: Aspirin 81 mg daily, calcium 500 at bedtime, folic acid 400 mg daily, Namenda 10 mg b.i.d., rivastigmine 3 mg b.i.d., Tylenol 1000 mg p.o. b.i.d., vitamin D3 2000 daily, and Zocor 20 mg at bedtime. The patient's Xarelto has been discontinued per family prior to coming in and agreed to stop it. I spent at least 38 minutes taking care of this patient today. <ELECTRONICALLY SIGNED> By: Darlene Gauthier MD 09/10/18 [id number] 1913Darlene Gauthier MD /nt
== END 2018-09-08 15:57 | DRG 563 ==
LOC: M.ERS 12:25 → M.2W 14:31 → M.TBA-ER 14:31 → M.ORTHSURG 14:31 → M.2W 17:03
PROVIDERS: Emergency Medicine; Internal Medicine; ADMIT Internal Medicine
DX: S82.144A Nondisplaced bicondylar fracture of right tibia, initial encounter for closed fracture (principal); N39.0 Urinary tract infection, site not specified; F03.90 Unspecified dementia, unspecified severity, without behavioral disturbance, psychotic disturbance, mood disturbance, and anxiety; E78.5 Hyperlipidemia, unspecified; S82.401A Unspecified fracture of shaft of right fibula, initial encounter for closed fracture; M51.36 Other intervertebral disc degeneration, lumbar region; M19.012 Primary osteoarthritis, left shoulder; M25.461 Effusion, right knee; S82.434A Nondisplaced oblique fracture of shaft of right fibula, initial encounter for closed fracture; S82.224A Nondisplaced transverse fracture of shaft of right tibia, initial encounter for closed fracture; I48.91 Unspecified atrial fibrillation; M17.0 Bilateral primary osteoarthritis of knee; L84 Corns and callosities; M71.38 Other bursal cyst, other site; I25.10 Atherosclerotic heart disease of native coronary artery without angina pectoris; I10 Essential (primary) hypertension; Z96.641 Presence of right artificial hip joint; Z95.1 Presence of aortocoronary bypass graft; Z90.79 Acquired absence of other genital organ(s); Z79.899 Other long term (current) drug therapy; Z79.82 Long term (current) use of aspirin; W18.39XA Other fall on same level, initial encounter; Y93.01 Activity, walking, marching and hiking; Y92.488 Other paved roadways as the place of occurrence of the external cause; Y99.8 Other external cause status

== ENCOUNTER 2018-10-25 09:06 | Emergency (ER) | payer MEDICARE, OTHER ==
[~2018-10-25] VITALS: Ht 195.6 cm; Wt 95.0 kg
[~2018-10-25 09:06] MED LIST changes: +CALCIUM500 MG PO; +TYLENOL EXTRA500 MG PO; +VITAMIN D2000 UNIT PO; +XARELTO10 MG PO
[2018-10-25 09:36] LABS: HEMATOCRIT 49.5 % (42.0-52.0); HEMOGLOBIN 16.5 gm/dL (14.0-18.0); MCH 31.6 pg (26.0-34.0); MCHC 33.4 g/dL (28.0-37.0); MCV 94.5 fL (80.0-100.0); MPV 8.7 fl. (7.2-11.1); RBC 5.24 mil/uL (4.50-6.00); RDW-CV 13.2 % (10.5-14.5); WBC 7.4 thou/uL (4.0-11.0)
[2018-10-25 09:53] LABS: ANION GAP 9 mmol/L (7-16); BUN 26 mg/dL (7-18); CHLORIDE 107 mmol/L (98-107); CO2 28 mmol/L (21-32); CREATININE 1.2 mg/dL (0.6-1.3); GLUCOSE 132 mg/dL (70-99); POTASSIUM 3.9 mmol/L (3.5-5.1); SODIUM 144 mmol/L (136-145); TROPONIN-I LEVEL <0.06 ng/mL (<0.06)
[2018-10-25 10:00] LABS: ALBUMIN 3.6 g/dL (3.4-5.0); ALKALINE PHOSPHATASE 83 U/L (46-116); NT-PRO BRAIN NAT PEPTIDE 70 pg/mL (<300); SGOT 16 U/L (15-37); SGPT 14 U/L (30-65); TOTAL BILIRUBIN 0.6 mg/dL (<0.1-1.0); TOTAL PROTEIN 6.6 g/dL (6.4-8.2)
[2018-10-25 11:28] VITALS: BP 137/50
--- NOTE | 2018-10-25 16:01 | EKG ---
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1930 Requested By: Bernardino Mc Order Number: [id number] MD: Michael Markham Measurements Intervals Superior Rate: 93 P: 67 TX: 182 QRS: -61 QRSD: 122 T: 62 QT: 360 QTc: 448 Interpretive Statements Sinus rhythm Nonspecific IVCD with LAD Compared to ECG 09/04/2018 15:33:43 Intraventricular conduction delay now present Atrial premature complex(es) no longer present Left bundle-branch block no longer present Electronically Signed On 10-25-2018 16:00:51 CDT by Michael Markham [email or web address] <ELECTRONICALLY SIGNED> By: Michael Markham MD, FAC 10/25/18 1600 4 Michael Markham MD, [facility] /EPI
== END 2018-10-25 11:31 | disposition home or self-care (01) ==
LOC: M.ERS 09:06
PROVIDERS: Emergency Medicine Emergency Medical Services
DX: R00.1 Bradycardia, unspecified (principal); R22.42 Localized swelling, mass and lump, left lower limb; I25.10 Atherosclerotic heart disease of native coronary artery without angina pectoris; F03.90 Unspecified dementia, unspecified severity, without behavioral disturbance, psychotic disturbance, mood disturbance, and anxiety; Z87.891 Personal history of nicotine dependence; Z88.5 Allergy status to narcotic agent; Z95.1 Presence of aortocoronary bypass graft